=== PATIENT | male | born 1935 | race Caucasian/White ===

== ENCOUNTER 2017-10-03 08:56 | Emergency (ER) | payer OTHER ==
[~2017-10-03] VITALS: Ht 170.2 cm; Wt 83.9 kg
[2017-10-03 09:01] VITALS: BP 169/74
--- NOTE | 2017-10-03 09:09 | ED UPPER/LOWER EXTREMITY COMPL ---
History of Present Illness General Chief Complaint: Upper Extremity Problem Stated Complaint: R SHOULDER PAIN Source: patient Exam Limitations: no limitations Vital Signs & Intake/Output Vital Signs & Intake/Output Vital Signs Date Time Temp Pulse Resp B/P B/P Pulse O2 O2 Flow FiO2 Mean Ox Delivery Rate 10/03 0914 Room Air 10/03 0901 97.3 79 16 169/74 97 Room Air Allergies Coded Allergies: NSAIDS (Non-Steroidal Anti-Inflamma (Severe, DIARRHEA 10/03/17) lisinopril (UNKNOWN 10/03/17) Reconcile Medications Oxycodone HCl/Acetaminophen (Percocet 5-325 MG Tablet) 5 MG-325 MG TABLET 1 TAB PO BID PRN PAIN DO NOT TAKE THIS MEDICATION WHILE OPERATING MOTOR VEHICLES Triage Note: PRESENTS TO ED FOR EVALUATION OF RIGHT SHOULDER AND RIGHT UPPER ARM PAIN THAT STARTED YESTERDAY AFTER CLEANING GLASS FRAGMENTS FROM A BROKEN TABLE. + DECREASED RANGE OF MOTION DUE TO PAIN. Triage Nurses Notes Reviewed? yes Onset: Gradual Duration: constant Timing: recent history Severity: severe Severity Numbers: 7 HPI: Patient is a 82-year-old male with past medical history diabetes, CAD since emergency room yesterday after vacuuming he had a gradual onset of right localized shoulder pain is made worse with movement. Patient denies any trauma or ACUTE onset of symptoms of pain States that at rest he has no pain. Denies any fever chills erythema skin neck pain elbow wrist pain chest pain shortness of breath diaphoresis nausea or vomiting. Patient is right-hand dominant states that he has a history of rotator cuff surgery (Jay Muñoz) Past History Travel History Traveled to [place] past 21 day No Medical History Any Pertinent Medical History? see below for history Cardiovascular: CAD Gastrointestinal: GERD Endocrine: DM Tetanus Vaccine: 05/10/14 Surgical History Surgical History: non-contributory Psychosocial History What is your primary language Lithuanian Tobacco Use: Never used Family History Hx Contributory? No (Jay Muñoz) Review of Systems Review of Systems Constitutional: Reports: no symptoms. EENTM: Reports: no symptoms. Respiratory: Reports: no symptoms. Cardiovascular: Reports: no symptoms. Gastrointestinal/Abdominal: Reports: no symptoms. Genitourinary: Reports: no symptoms. Musculoskeletal: Reports: see HPI, joint pain, muscle pain. Skin: Reports: no symptoms. Neurological/Psychological: Reports: no symptoms. Hematologic/Endocrine: Reports: no symptoms. Immunological: Reports: no symptoms. All Other Systems: Reviewed and Negative (Ct CHARLES,Jay) Physical Exam Physical Exam General Appearance: no apparent distress, alert, comfortable Head: atraumatic Eyes: Bilateral: normal appearance. Ears, Nose, Throat: hearing grossly normal Neck: normal inspection, supple, full range of motion Cardiovascular/Respiratory: no respiratory distress Peripheral Pulses: 2+ radial (R) Neurologic/Tendon: normal sensation, normal motor functions, normal tendon functions, responds to pain, no evidence tendon injury Skin: intact, normal color, warm/dry Comments: Right shoulder normal inspection decreased range of motion to 30 of flexion abduction Generalized point tenderness noted Right elbow normal inspection nontender Right wrist normal inspection nontender Right upper extremity dermatomes intact radial pulse +2 (Jay Muñoz) Progress Differential Diagnosis: arterial insufficiency, compartment syndrome, contusion, dislocation, DVT, fracture, gout, septic arthritis, sprain, tendon injury Plan of Care: Orders Procedure Date/time Status Durable Medical Equipment 10/03 1011 Active Due to history of present illness and exam findings no concerns of myocardial infarction or cardiovascular ACUTE DISEASE/ILLNESS at this time Patient has reproducible pain to the right shoulder that is localized. Denies any trauma however x-rays will be obtained patient was neurovascularly intact X-rays resulted no osseous injury noted gave results of x-ray to patient. Shoulder immobilizer was placed. pre/Post neurovascular was intact Diagnostic Imaging: Viewed by Me: Radiology Read. Radiology Impression: no fracture Comments: PATIENT: FAY IZQUIERDO PRESENT AGE: 82 PATIENT ACCOUNT NO: [id number] : 33 LOCATION: [facility] ORDERING PHYSICIAN: Jay CHARLES SERVICE DATE: 10/03/17 EXAM TYPE: RAD - XRY-SHOULDER COMPLETE-RIGHT EXAMINATION: XR SHOULDER, RIGHT CLINICAL INFORMATION: Right shoulder pain COMPARISON: None TECHNIQUE: Three views of the right shoulder. FINDINGS: Bone alignment is normal. No fracture or dislocation is seen. The glenohumeral joint is normal. There is a joint space narrowing at the acromioclavicular joint. There is a small acromial osteophyte and multiple adjacent soft tissue calcifications or ossifications. IMPRESSION: Joint space narrowing at the acromioclavicular joint. Small acromial osteophyte and multiple adjacent soft tissue calcifications or ossifications. DICTATED BY: Fauzia Sorto MD DATE/TIME DICTATED:10/03/17958 SHOOTER'S HELPER:TANESHA DATE/TIME TRANSCRIBED:10/03/17958 (Jay Muñoz) Departure Departure Disposition: HOME OR SELF CARE Condition: Stable Clinical Impression Primary Impression: Right shoulder pain Secondary Impressions: Acromioclavicular (AC) joint injury Referrals: Hector SYKES,Jaclyn (PCP/Family) Angel Luis SYKES,Jose Additional Instructions: As discussed begin icing the area directly 20 minutes every 2 hours begin the prescription of Percocet for pain Begin using the shoulder immobilizer for support until YOU can move the arm without pain If no better in 3 days follow-up with orthopedics Dr. Hein. If symptoms worsen return to emergency room Departure Forms: Customer Survey General Discharge Information Prescriptions: Current Visit Scripts Oxycodone HCl/Acetaminophen (Percocet 5-325 MG Tablet) 1 TAB PO BID PRN PAIN #8 TAB DO NOT TAKE THIS MEDICATION WHILE OPERATING MOTOR VEHICLES (Jay Muñoz) PA/RAILROAD CAR PAINTER Co-Sign Statement Statement: ED Attending supervision documentation- x I saw and evaluated the patient. I have also reviewed all the pertinent lab results and diagnostic results. I agree with the findings and the plan of care as documented in the PA's/RAILROAD CAR PAINTER's documentation. [] I have reviewed the ED Record and agree with the PA's/RAILROAD CAR PAINTER's documentation. [] Additions or exceptions (if any) to the PAs/RAILROAD CAR PAINTER's note and plan are summarized below: [] (Charlette SYKES,Don)
--- NOTE | 2017-10-03 10:04 | RADIOLOGY REPORT ---
EXAMINATION: XR SHOULDER, RIGHT CLINICAL INFORMATION: Right shoulder pain COMPARISON: None TECHNIQUE: Three views of the right shoulder. FINDINGS: Bone alignment is normal. No fracture or dislocation is seen. The glenohumeral joint is normal. There is a joint space narrowing at the acromioclavicular joint. There is a small acromial osteophyte and multiple adjacent soft tissue calcifications or ossifications. IMPRESSION: Joint space narrowing at the acromioclavicular joint. Small acromial osteophyte and multiple adjacent soft tissue calcifications or ossifications.
[2017-10-03] MEDS ORDERED: PERCOCET 5-3251 EACH PO (10:09)
== END 2017-10-03 10:14 ==
LOC: ERH 08:56
DX: S49.91XA Unspecified injury of right shoulder and upper arm, initial encounter (principal); X58.XXXA Exposure to other specified factors, initial encounter; Y93.E3 Activity, vacuuming; Y93.9 Activity, unspecified
CPT/HCPCS: 73030-RT